=== PATIENT | female | born 1940 | race Caucasian/White ===

== ENCOUNTER → 2017-02-20 | Outpatient (CLI) | payer MEDICARE ==
[~2017-02-20] MED LIST: ASPI-496 PO; BRIM5DRO3 EACHEYE; CHOL200024 PO; ESCI20TA10 PO; FURO-92 PO; LEVO100T5 PO; LISI-170 PO; METO25TA2 PO; OMEP20CA9 PO; ROSU20TA PO; TRAV5DRO EACHEYE; VITA1TAB3 PO
== END | disposition home or self-care (01) ==
LOC: CFH 13:35
PROVIDERS: ATTEND Nurse Practitioner
DX: R22.1 Localized swelling, mass and lump, neck (principal)
CPT/HCPCS: 76536

== ENCOUNTER → 2017-04-19 | Outpatient (CLI) | payer MEDICARE | END | disposition home or self-care (01) | LOC: CFH 10:46 | PROVIDERS: ATTEND Nurse Practitioner | DX: Z12.31 Encounter for screening mammogram for malignant neoplasm of breast (principal); N95.8 Other specified menopausal and perimenopausal disorders; Z80.3 Family history of malignant neoplasm of breast | CPT/HCPCS: 77063; G0202 ==

== ENCOUNTER 2017-09-12 14:21 | Inpatient (IN) | payer MEDICARE ==
[~2017-09-12] VITALS: Ht 165.1 cm; Wt 84.2 kg
[2017-09-12 15:18] LABS: HEMATOCRIT 40.5 % (34.6-47.8); HEMOGLOBIN 13.4 g/dL (11.7-16.4); WHITE BLOOD COUNT 6.3 x10^3/uL (3.4-10)
[2017-09-12 15:38] LABS: BLOOD UREA NITROGEN 18 mg/dL (7-18)
[2017-09-12 15:45] LABS: IS PT STATUS REG ER OR PRE ER? YES
[2017-09-12] MEDS ORDERED: DULO60CA7 PO (16:25)
[2017-09-12] MEDS ORDERED: ESOM20CA PO (16:28)
[2017-09-12] MEDS ORDERED: METO25TA35 PO (16:29)
[2017-09-12] MEDS ORDERED: ALLO300T PO (16:30)
[2017-09-12] MEDS ORDERED: NS + 20MEQ KCL 1,000 ML IV SCH (17:18)
[2017-09-12] MEDS ORDERED: DOCUSATE 100 MG CAPSULE PO PRN (17:30)
[2017-09-12] MEDS ORDERED: ACETAMINOPHEN 325 MG TABLET PO PRN (17:30)
[2017-09-12] MEDS ORDERED: ONDANSETRON 2MG/ML, 2ML IVPush PRN (17:30)
[2017-09-12] MEDS ORDERED: POLYETHYLENE GLYCOL 17 GM PACKET PO PRN (17:30)
[2017-09-12] MEDS ORDERED: HYDROcodone/APAP 5/325 TABLET PO PRN (17:30)
[2017-09-12] MEDS ORDERED: ENOXAPARIN 40 MG/0.4 ML SQ SCH (17:30)
[2017-09-12] MEDS ORDERED: HYDROmorphone 2 MG/ML, 1ML IVPush PRN (17:30)
[2017-09-12] MEDS ORDERED: OMNIPAQUE 350 MG/ML, 100ML BOTTLE ONE (18:01)
[2017-09-12 20:11] VITALS: BP 131/67
[2017-09-12] MEDS ORDERED: HYDROmorphone 1 MG/ML, 1ML ONE (20:47)
[2017-09-12] MEDS ORDERED: TEMPLATE NON-FORMULARY MED. (Brimonidine Tartrate** (Alphagan P**) 1 DROP(S)) EACHEYE SCH (21:00)
[2017-09-12] MEDS ORDERED: TRAVOPROST OPHTH 0.004%, 2.5ML EACHEYE SCH (21:00)
[2017-09-12] MEDS ORDERED: [UNRECOGNIZED DRUG - OTHER] MC SCH (21:00)
[2017-09-12] MEDS ORDERED: ASPIRIN 81 MG TABLET EC PO SCH (21:00)
[2017-09-12] MEDS ORDERED: ATORVASTATIN 40 MG TABLET PO SCH (21:00)
[2017-09-12] MEDS: AMOXICILLIN/CLAV 875-125MG TABLET PO SCH (21:47)
[2017-09-12] MEDS: FAMOTIDINE 20 MG TABLET PO SCH (21:48)
[2017-09-12] MEDS: METOPROLOL TARTRATE 25 MG TABLET PO SCH (21:48)
[2017-09-12] MEDS ORDERED: BRIMONIDINE TART. OPHTH 0.2%, 5ML EACHEYE SCH (22:00)
[2017-09-13 01:00] VITALS: BP 97/58
[2017-09-13 05:52] LABS: IS PT STATUS REG ER OR PRE ER? NO
[2017-09-13] MEDS ORDERED: LEVOTHYROXINE 100 MCG TABLET PO SCH (06:00)
[2017-09-13 07:16] VITALS: BP 120/71
[2017-09-13] MEDS ORDERED: REGADENOSON 0.4 MG/5 ML SYRINGE ONE (08:42)
[2017-09-13] MEDS ORDERED: SENNA/DOCUSATE TABLET PO SCH (09:00)
[2017-09-13] MEDS ORDERED: FUROSEMIDE 40 MG TABLET PO SCH (09:00)
[2017-09-13] MEDS ORDERED: ALLOPURINOL 300 MG TABLET PO SCH (09:00)
[2017-09-13] MEDS ORDERED: DULOXETINE 30 MG CAPSULE.DR PO SCH (09:00)
[2017-09-13] MEDS ORDERED: LISINOPRIL 20 MG TABLET PO SCH (09:00)
[2017-09-13] MEDS: AMOXICILLIN/CLAV 875-125MG TABLET PO SCH (09:01)
[2017-09-13] MEDS: METOPROLOL TARTRATE 25 MG TABLET PO SCH (09:04)
[2017-09-13] MEDS: FAMOTIDINE 20 MG TABLET PO SCH (09:04)
[2017-09-13] MEDS ORDERED: ALBUTEROL SULFATE 2.5 MG/3 ML ONE (09:35)
[2017-09-13] MEDS ORDERED: ALBUTEROL SULFATE 2.5 MG/3 ML NPPB PRN (10:30)
[2017-09-13] MEDS ORDERED: GUAIFENESIN/COD200MG-20MG/10ML LIQUID PO PRN (11:00)
[2017-09-13 14:14] VITALS: BP 124/97
[2017-09-13] MEDS ORDERED: GUAI10LI PO (17:39)
[2017-09-13] MEDS ORDERED: AMOX1TAB12 PO (17:39)
[2017-09-13] MEDS ORDERED: BRIMONIDINE TART. OPHTH 0.2%, 5ML EACHEYE SCH (21:00)
== END 2017-09-13 18:54 | disposition home or self-care (01) | DRG 202 ==
LOC: SUATTDRO 17:00 → ED 17:17 → EDIP 17:18 → ED 18:29 → 5SO 19:54
PROVIDERS: ADMIT Family Medicine; ATTEND Family Medicine
DX: J40 Bronchitis, not specified as acute or chronic (principal); E87.1 Hypo-osmolality and hyponatremia; G35 Multiple sclerosis; E78.5 Hyperlipidemia, unspecified; I25.10 Atherosclerotic heart disease of native coronary artery without angina pectoris; K21.9 Gastro-esophageal reflux disease without esophagitis; I10 Essential (primary) hypertension; M10.9 Gout, unspecified; R79.1 Abnormal coagulation profile; Z95.5 Presence of coronary angioplasty implant and graft; E89.0 Postprocedural hypothyroidism
CPT/HCPCS: 36415; 71010; 71275; 78452; 80048; 80061; 82040; 82962; 84443; 84484; 85025; 85379; 87324; 93005; 93017; 93306; 94640; 99285; J1650; J2785; J3480; Q9967; A9502; C9898

== ENCOUNTER → 2018-07-06 | Outpatient (CLI) | payer MEDICARE ==
[~2018-07-06] MED LIST changes: +ALLO300T PO; +AMOX1TAB12 PO; +DULO60CA7 PO; +ESOM20CA PO; +GUAI10LI PO; +METO25TA35 PO
== END | disposition home or self-care (01) ==
LOC: CFH 14:34
PROVIDERS: ATTEND Nurse Practitioner
DX: Z12.31 Encounter for screening mammogram for malignant neoplasm of breast (principal); Z13.820 Encounter for screening for osteoporosis; M85.89 Other specified disorders of bone density and structure, multiple sites; Z86.73 Personal history of transient ischemic attack (TIA), and cerebral infarction without residual deficits
CPT/HCPCS: 77080; 77067